=== PATIENT | female | born 2000 | race Caucasian/White ===

== ENCOUNTER 2018-01-23 17:14 | Emergency (ER) | payer OTHER, SELFPAY ==
[2018-01-23 18:12] LABS: Urine Blood 2+ (NEG); Urine Glucose NEGATIVE (NEG); Urine Protein TRACE (NEG); Urine pH 5.5 (5.0-7.0)
[2018-01-23 18:14] LABS: Absolute Lymphocytes (CBC) 2.4 K/uL (0.7-4.9); Absolute Monocytes 0.8 K/uL (0.1-1.3); Absolute Neutrophil 4.8 K/uL (1.8-8.0); Basophils % 0.6 % (0-1.3); Eosinophils % 2.2 % (0-4.4); Hematocrit 43.3 % (36.0-45.0); MCH 28.5 pg (27.0-35.0); MCV 82.5 fL (80-100); MPV 9.9 fL (7.6-11.3); Monocytes % 9.9 % (3.3-12.3); RBC Red Blood Cell Count 5.25 M/uL (3.86-4.86)
[2018-01-23 18:19] LABS: Protime INR 1.09
[2018-01-23 18:43] LABS: ALT/SGPT 18 U/L (12-78); AST/SGOT 15 U/L (15-37); Albumin 4.2 g/dL (3.4-5.0); Alkaline Phosphatase 85 U/L (45-117); BUN Blood Urea Nitrogen 6 mg/dL (7-18); Bicarbonate 25 mmol/L (21-32); Bilirubin Direct 0.2 mg/dL (0-0.2); Bilirubin Total 0.6 mg/dL (0.2-1.0); Glucose Level 82 mg/dL (74-106); Potassium 3.9 mmol/L (3.5-5.1); Protein, Total 7.9 g/dL (6.4-8.2); Sodium Level 142 mmol/L (136-145)
--- NOTE | 2018-01-23 18:46 | RAD REPORT ---
EXAM DESCRIPTION: RAD - Chest Single View - 01/23/2018 6:22 pm CLINICAL HISTORY: Intermittent chest pain COMPARISON: October 2014 TECHNIQUE: AP portable chest image was obtained 1812 hours . FINDINGS: No focal infiltrate. Stranding in the left base is minimal. No failure or volume overload. Heart and vasculature are normal. No measurable pleural effusion and no pneumothorax. No acute bone finding. Scoliotic curvature is present and stable from 2014. No acute aortic findings suspected. IMPRESSION: No consolidation or mass. Minimal stranding in the left lung base probably represents a mild interstitial pneumonia.
--- NOTE | 2018-01-23 19:19 | RAD REPORT ---
EXAM DESCRIPTION: CT - Chest For Pe Angio - 01/23/2018 7:14 pm CLINICAL HISTORY: Intermittent chest pain, shortness of breath, near syncope COMPARISON: Chest films same date TECHNIQUE: Dynamically enhanced 3 mm thick images of the chest were obtained during administration o f approximately 150mL Isovue 370 IV contrast. Coronal and oblique reconstruction images were generate d and reviewed. Exam utilizes a protocol to evaluate the pulmonary arterial tree. All CT scans are performed using dose optimization technique as appropriate and may include automated exposure control or mA/KV adjustment according to patient size. FINDINGS: No pulmonary emboli are identified. The aorta as imaged shows no acute or suspicious finding. No pericardial thickening or effusion. No infiltrate or mass in the lung parenchyma. Minimal stranding seen on the chest film in the left ba se is less evident on CT chest imaging. No pleural effusion or pleural thickening. No mediastinal or hilar suspicious masses. No chest wall masses or abnormal axillary lymphadenopathy. IMPRESSION: No pulmonary emboli identified. No other significant or suspicious findings.
--- NOTE | 2018-01-23 19:32 | ER ---
Nurse's Notes [facility] Name: Dorcas Woods Age: 17 yrs Sex: Female : 2000 Arrival Date: 01/23/2018 Time: 17:15 Bed 20 Private MD: Diagnosis: Chest pain, unspecified Presentation: 01/23 17:25 Presenting complaint: Patient states: intermittent CP that began 1 week ago with ss shortness of breath and feeling of near syncope. Pt reports this has happened in the past, but has not felt as if she were about to pass out. Transition of care: patient was not received from another setting of care. Onset of symptoms was January 16, 2018. Risk Assessment: Do you want to hurt yourself or someone else? Patient reports no desire to harm self or others. Initial Sepsis Screen: Does the patient meet any 2 criteria? No. Patient's initial sepsis screen is negative. Does the patient have a suspected source of infection? No. Patient's initial sepsis screen is negative. Care prior to arrival: None. 17:25 Method Of Arrival: Ambulatory ss 17:25 Acuity: ELIZABETH 3 ss TAKE OFF MAN: 17:28 LMP 01/18/2018 ss Historical: - Allergies: 17:28 No Known Allergies; ss - Home Meds: 17:28 None [Active]; ss - PMHx: 17:28 None; ss - PSHx: 17:28 bilateral eyes; ss - Immunization history:: Adult Immunizations unknown. - Social history:: Smoking status: Patient uses tobacco products, smokes one-half pack cigarettes per day. - Ebola Screening: : Patient denies exposure to infectious person Patient denies travel to an Ebola-affected area in the 21 days before illness onset. Screenin:08 Abuse screen: Denies threats or abuse. Nutritional screening: No deficits noted. em Tuberculosis screening: No symptoms or risk factors identified. Fall Risk None identified. Assessment: 17:45 General: Appears in no apparent distress. comfortable, Behavior is calm, cooperative, em Reports left sided chest pain that happened at 1230 that lasted about 1-2 minutes with SOB, denies N/V, has not had chest pain since, smokes 1PPD. Pain: Complains of pain in anterior aspect of left upper chest Pain does not radiate. Pain began 1230. Neuro: Level of Consciousness is awake, alert, obeys commands, Oriented to person, place, time, situation. Cardiovascular: Heart tones S1 S2 present Capillary refill < 3 seconds Patient's skin is warm and dry. Rhythm is regular Chest pain is denied. Respiratory: Airway is patent Respiratory effort is even, unlabored, Respiratory pattern is regular, symmetrical. GI: Abdomen is flat, Patient currently denies nausea, vomiting. : Urine is clear. EENT: No signs and/or symptoms were reported regarding the EENT system. Derm: Skin is intact, Skin is pink, warm \T\ dry. Musculoskeletal: Capillary refill < 3 seconds, Range of motion: intact in all extremities. 18:00 General: The previous assessment is accurate, call light remains within reach.. ss 18:43 Reassessment: Patient appears in no apparent distress at this time. Patient and/or em family updated on plan of care and expected duration. Pain level reassessed. Patient is alert, oriented x 3, equal unlabored respirations, skin warm/dry/pink. Patient denies pain at this time. 19:05 Reassessment: Report received from RIKI Still. bs1 19:05 General: Appears in no apparent distress. comfortable, Behavior is calm, cooperative, bs1 appropriate for age. Pain: Denies pain. Neuro: Level of Consciousness is awake, alert, obeys commands, Oriented to person, place, time, situation, Appropriate for age. Cardiovascular: Heart tones S1 S2 present Capillary refill < 3 seconds Patient's skin is warm and dry. Rhythm is regular Chest pain is denied. Respiratory: Airway is patent Trachea midline Respiratory effort is even, unlabored, Respiratory pattern is regular, symmetrical, Breath sounds are clear bilaterally. GI: Abdomen is round. : No signs and/or symptoms were reported regarding the genitourinary system. EENT: No signs and/or symptoms were reported regarding the EENT system. Derm: Skin is intact, Skin is pink, warm \T\ dry. normal. Musculoskeletal: Circulation, motion, and sensation intact. Capillary refill < 3 seconds, Range of motion: intact in all extremities. 19:41 Reassessment: Patient appears in no apparent distress at this time. Patient and/or bs1 family updated on plan of care and expected duration. Pain level reassessed. Patient is alert, oriented x 3, equal unlabored respirations, skin warm/dry/pink. Informed patient of discharge instructions. Patient states understanding of POC. Patient denies pain at this time. Patient states feeling better. Patient states symptoms have improved. Vital Signs: 17:28 BP 124 / 79; Pulse 95; Resp 16; Temp 98.1(TE); Pulse Ox 98% on R/A; Weight 82.55 kg; ss Height 5 ft. 2 in. (157.48 cm); Pain 0/10; 19:15 BP 113 / 72; Pulse 77; Resp 16; Temp 98(O); Pulse Ox 100% on R/A; Pain 0/10; bs1 17:28 Body Mass Index 33.29 (82.55 kg, 157.48 cm) ED Course: 17:15 Patient arrived in ED. as 17:27 Triage completed. ss 17:28 Arm band placed on right wrist. ss 17:29 Grant oRjas NP is PHCP. pm1 17:29 Mathew Alvarado MD is Attending Physician. pm1 18:07 Cheko Guzmán LVN is Primary Nurse. em 18:08 Patient has correct armband on for positive identification. Placed in gown. Bed in low em position. Call light in reach. Adult w/ patient. resort manager on. Pulse ox on. NIBP on. 18:08 No provider procedures requiring assistance completed. Initial lab(s) drawn, by me, em sent to lab. Inserted saline lock: 20 gauge in left antecubital area, using aseptic technique. Blood collected. Patient maintains SpO2 saturation greater than 95% on room air. 18:22 XRAY Chest (1 view) In Process Unspecified. EDMS 19:14 CT Chest For PE Angio In Process Unspecified. EDMS 19:14 CT completed. Patient moved to CT via wheelchair. Patient moved back from CT. kw1 19:17 Primary Nurse role handed off by Cheko Guzmán LVN bs1 19:17 Nicolasa Contreras, RN is Primary Nurse. bs1 19:43 IV discontinued, bleeding controlled, No redness/swelling at site. Pressure dressing bs1 applied. Administered Medications: No medications were administered Outcome: 19:31 Discharge ordered by MD. pm1 19:42 Discharged to home ambulatory, with significant other. bs1 19:42 Condition: stable 19:42 Discharge instructions given to patient, Instructed on discharge instructions, follow up and referral plans. Demonstrated understanding of instructions, follow-up care. 19:43 Patient left the ED. bs1 Signatures: Dispatcher [employer] Cheko Moore, UNIVERSITY LIBRARIAN UNIVERSITY LIBRARIAN Lisa Henson Shelby, RN RN ss Grant Rojas, LENS FINISHER LENS FINISHER pm1 Katherine Sharpe kw1 Nicolasa Contreras RN RN bs1 Corrections: (The following items were deleted from the chart) 18:21 14:52 General: The previous assessment is accurate, call light remains within reach.. ssss
--- NOTE | 2018-01-23 19:32 | EDPHYS ---
Physician Documentation [facility] Name: Dorcas Woods Age: 17 yrs Sex: Female : 2000 Arrival Date: 01/23/2018 Time: 17:15 Bed 20 Private MD: ED Physician Mathew Alvarado HPI: 01/23 17:39 This 17 yrs old Female presents to ER via Ambulatory with complaints of Chest pm1 Pain. 17:39 The patient or guardian reports chest pain that is located primarily in the anterior pm1 chest wall, left. The pain does not radiate. Associated signs and symptoms: Pertinent positives: shortness of breath, Pertinent negatives: abdominal pain, cough, diaphoresis, dizziness, headache, nausea, palpitations, vomiting. The chest pain is described as sharp. Duration: The patient or guardian reports multiple episodes, the episodes last approximately 1 minute(s). Modifying factors: The symptoms are alleviated by nothing. the symptoms are aggravated by nothing. Severity of pain: in the emergency department the pain has resolved. The patient has experienced similar episodes in the past, multiple times, On and off chest pain for 6 years. The patient has not recently seen a physician. Patient 1 pack per day smoker. DIRECT CARE SUPERVISOR: 17:28 LMP 01/18/2018 ss Historical: - Allergies: 17:28 No Known Allergies; ss - Home Meds: 17:28 None [Active]; ss - PMHx: 17:28 None; ss - PSHx: 17:28 bilateral eyes; ss - Immunization history:: Adult Immunizations unknown. - Social history:: Smoking status: Patient uses tobacco products, smokes one-half pack cigarettes per day. - Ebola Screening: : Patient denies exposure to infectious person Patient denies travel to an Ebola-affected area in the 21 days before illness onset. ROS: 17:39 Constitutional: Negative for fever, chills, and weight loss, Eyes: Negative for injury, pm1 pain, redness, and discharge, ENT: Negative for injury, pain, and discharge, Neck: Negative for injury, pain, and swelling. 17:39 Abdomen/GI: Negative for abdominal pain, nausea, vomiting, diarrhea, and constipation, Back: Negative for injury and pain, : Negative for injury, bleeding, discharge, and swelling, MS/Extremity: Negative for injury and deformity, Skin: Negative for injury, rash, and discoloration, Neuro: Negative for headache, weakness, numbness, tingling, and seizure. 17:39 Cardiovascular: Positive for chest pain, Negative for edema, orthopnea, palpitations. 17:39 Respiratory: Positive for shortness of breath, Negative for cough, sputum production, wheezing. Exam: 17:39 Constitutional: This is a well developed, well nourished patient who is awake, alert, pm1 and in no acute distress. Head/Face: Normocephalic, atraumatic. Eyes: Pupils equal round and reactive to light, extra-ocular motions intact. Lids and lashes normal. Conjunctiva and sclera are non-icteric and not injected. Cornea within normal limits. Periorbital areas with no swelling, redness, or edema. ENT: Nares patent. No nasal discharge, no septal abnormalities noted. Tympanic membranes are normal and external auditory canals are clear. Oropharynx with no redness, swelling, or masses, exudates, or evidence of obstruction, uvula midline. Mucous membranes moist. Neck: Trachea midline, no thyromegaly or masses palpated, and no cervical lymphadenopathy. Supple, full range of motion without nuchal rigidity, or vertebral point tenderness. No Meningismus. 17:39 Cardiovascular: Regular rate and rhythm with a normal S1 and S2. No gallops, murmurs, or rubs. Normal PMI, no JVD. No pulse deficits. Respiratory: Lungs have equal breath sounds bilaterally, clear to auscultation and percussion. No rales, rhonchi or wheezes noted. No increased work of breathing, no retractions or nasal flaring. Abdomen/GI: Soft, non-tender, with normal bowel sounds. No distension or tympany. No guarding or rebound. No evidence of tenderness throughout. Back: No spinal tenderness. No costovertebral tenderness. Full range of motion. Skin: Warm, dry with normal turgor. Normal color with no rashes, no lesions, and no evidence of cellulitis. MS/ Extremity: Pulses equal, no cyanosis. Neurovascular intact. Full, normal range of motion. 17:39 Chest/axilla: Inspection: normal, Palpation: is normal. 17:39 Neuro: Orientation: is normal, Motor: is normal, moves all fours, Sensation: is normal, no obvious gross deficits, Gait: is steady, at a normal pace, without difficulty. Vital Signs: 17:28 BP 124 / 79; Pulse 95; Resp 16; Temp 98.1(TE); Pulse Ox 98% on R/A; Weight 82.55 kg; ss Height 5 ft. 2 in. (157.48 cm); Pain 0/10; 19:15 BP 113 / 72; Pulse 77; Resp 16; Temp 98(O); Pulse Ox 100% on R/A; Pain 0/10; bs1 17:28 Body Mass Index 33.29 (82.55 kg, 157.48 cm) ss MDM: 17:30 Patient medically screened. pm1 17:42 Data reviewed: vital signs. Data interpreted: Pulse oximetry: on room air is 98 %. pm1 Interpretation: normal. 19:30 Counseling: I had a detailed discussion with the patient and/or guardian regarding: the pm1 historical points, exam findings, and any diagnostic results supporting the discharge/admit diagnosis, lab results, radiology results, the need for outpatient follow up, smoking cessation. 01/23 17:38 Order name: PT-INR; Complete Time: 18:35 pm01/23 17:38 Order name: Basic Metabolic Panel; Complete Time: 18:52 pm01/23 17:38 Order name: CBC with Diff; Complete Time: 18:35 pm01/23 17:38 Order name: LFT's; Complete Time: 18:52 pm01/23 17:38 Order name: Ptt, Activated; Complete Time: 18:35 pm01/23 17:38 Order name: Troponin (emerg Dept Use Only); Complete Time: 18:52 pm01/23 17:38 Order name: Urine Test (obtain specimen); Complete Time: 18:07 pm01/23 17:38 Order name: XRAY Chest (1 view); Complete Time: 18:52 pm01/23 17:38 Order name: EKG; Complete Time: 17:38 pm01/23 17:38 Order name: Cardiac monitoring; Complete Time: 18:07 pm01/23 17:38 Order name: D-Dimer; Complete Time: 18:35 pm01/23 17:47 Order name: Urine Dipstick--Ancillary (enter results); Complete Time: 18:35 01/23 17:47 Order name: Urine --Ancillary (enter results); Complete Time: 18:35 eb 01/23 18:35 Order name: CT Chest For PE Angio; Complete Time: 19:20 pm1 01/23 17:38 Order name: EKG - Nurse/Tech; Complete Time: 18:07 pm1 01/23 17:38 Order name: IV Saline Lock; Complete Time: 18:08 pm1 01/23 17:38 Order name: Labs collected and sent; Complete Time: 18:08 pm1 01/23 17:38 Order name: O2 Per Protocol; Complete Time: 18:08 pm1 01/23 17:38 Order name: O2 Sat Monitoring; Complete Time: 18:08 pm1 01/23 17:38 Order name: Urine Dipstick-Ancillary (obtain specimen); Complete Time: 18:08 pm1 Administered Medications: No medications were administered Disposition: 01/23/18 19:31 Discharged to Home. Impression: Chest pain, unspecified. - Condition is Stable. - Discharge Instructions: Nonspecific Chest Pain, Steps to Quit Smoking, Smoking Hazards. - Medication Reconciliation Form, Thank You Letter form. - Work release form (01/23/18 19:53). ms - Follow up: Emergency Department; When: As needed; Reason: Worsening of condition. Follow up: Private Physician; When: 2 - 3 days; Reason: Recheck today's complaints, Continuance of care, Re-evaluation by your physician. - Problem is new. - Symptoms have improved. Addendum: 01/27/2018 08:03 Co-signature as Attending Physician, Mathew Alvarado MD I agree with the assessment and k dr plan of care. Signatures: Dispatcher [employer] EDFL Mathew Alvarado MD MD [facility] Haydee Whiting RN RN ss Grant Rojas, JULIOCESAR SCAFFOLD SETTER pm1 Nicolasa Contreras, RN RN bs1 Cristy Campbell ms Corrections: (The following items were deleted from the chart) 01/23 19:43 19:31 01/23/2018 19:31 Discharged to Home. Impression: Chest pain, unspecified. bs1 Condition is Stable. Forms are Medication Reconciliation Form, Thank You Letter, Antibiotic Education, Prescription Opioid Use. Follow up: Emergency Department; When: As needed; Reason: Worsening of condition. Follow up: Private Physician; When: 2 - 3 days; Reason: Recheck today's complaints, Continuance of care, Re-evaluation by your physician. Problem is new. Symptoms have improved. pm1
--- NOTE | 2018-01-24 06:43 | EKG ---
Test Date: 2018-01-23 Test Time: 18:09:59 Barrel Raiser: KIRBY MEASUREMENT RESULTS: Intervals: Rate: 74 TN: 132 QRSD: 78 QT: 384 QTc: 426 Marissa: P: 9 TN: 132 QRS: 45 T: 20 INTERPRETIVE STATEMENTS: Normal sinus rhythm Normal ECG No previous ECG available for comparison Electronically Signed On 01-24-18 06:42:38 CDT by Óscar Somers
== END 2018-01-23 19:43 | disposition home or self-care (01) ==
LOC: ER 17:14
DX: R07.9 Chest pain, unspecified (principal); F17.210 Nicotine dependence, cigarettes, uncomplicated
CPT/HCPCS: 36415; 71045; 71275; 80048; 80076; 81003; 81025; 84484; 85025; 85379; 85610; 85730; 93005; 99285; Q9967